=== PATIENT | female | born 1950 | race Caucasian/White ===

== ENCOUNTER → 2020-03-22 09:44 | Outpatient (BNVA) | payer MEDICARE, SELFPAY | PROVIDERS: Family Provider Family Medicine; PCP Family Medicine; Visit Provider Nurse Practitioner Family | DX: L63.9 Alopecia areata, unspecified (principal); Z12.31 Encounter for screening mammogram for malignant neoplasm of breast; I10 Essential (primary) hypertension; E03.9 Hypothyroidism, unspecified; E78.5 Hyperlipidemia, unspecified | CPT/HCPCS: 36415; 80061; 84439; 84443 ==

== ENCOUNTER → 2020-05-08 12:57 | Outpatient (BNVA) | payer MEDICARE, SELFPAY | PROVIDERS: Family Provider Family Medicine; PCP Family Medicine; Visit Provider Nurse Practitioner Family | DX: E03.9 Hypothyroidism, unspecified (principal) | CPT/HCPCS: 84439; 84443 ==

== ENCOUNTER 2020-08-19 10:37 | Outpatient (CLI) | payer MEDICARE, SELFPAY ==
--- NOTE | 2020-08-19 11:00 | MM_ITS ---
WS: [id number] BILATERAL DIGITAL SCREENING MAMMOGRAPHY WITH CAD CLINICAL INFORMATION: screening mammogram HISTORY: Screening mammogram. No current complaints. COMPARISON: TECHNIQUE: Bilateral CC and MLO views. FINDINGS: Scattered fibroglandular densities bilaterally. No suspicious focal mass, asymmetry, calcifications, or architectural distortion. No evidence of malignancy. Punctate and lucent center calcifications. Va scular calcifications. MM/[place] [id number] IMPRESSION: BI-RADS: 2-Benign FOLLOW UP: 1 Year Follow-up Recommend return to annual screening mammography.
== END 2020-08-19 10:38 | disposition home or self-care (01) ==
PROVIDERS: PCP Family Medicine; Visit Provider Nurse Practitioner Family
DX: Z12.31 Encounter for screening mammogram for malignant neoplasm of breast (principal)
CPT/HCPCS: 77067

== ENCOUNTER → 2020-10-17 09:00 | Outpatient (BNVA) | payer MEDICARE, SELFPAY | PROVIDERS: PCP Family Medicine; Visit Provider Nurse Practitioner Family | DX: E55.9 Vitamin D deficiency, unspecified (principal); E78.5 Hyperlipidemia, unspecified; I10 Essential (primary) hypertension | CPT/HCPCS: 80053; 80061; 82306 ==

== ENCOUNTER → 2021-05-05 13:17 | Outpatient (BNVA) | payer MEDICARE, SELFPAY | PROVIDERS: PCP Family Medicine; Visit Provider Nurse Practitioner Family | DX: E03.9 Hypothyroidism, unspecified (principal); E55.9 Vitamin D deficiency, unspecified | CPT/HCPCS: 82306; 84443 ==

== ENCOUNTER → 2021-06-23 13:04 | Outpatient (BNVA) | payer MEDICARE, SELFPAY | PROVIDERS: PCP Family Medicine; Visit Provider Nurse Practitioner Family | DX: E03.9 Hypothyroidism, unspecified (principal) | CPT/HCPCS: 84443 ==

== ENCOUNTER → 2021-08-06 10:40 | Outpatient (BNVA) | payer MEDICARE, SELFPAY | PROVIDERS: PCP Family Medicine; Visit Provider Nurse Practitioner Family | DX: E03.9 Hypothyroidism, unspecified (principal) | CPT/HCPCS: 84443 ==

== ENCOUNTER 2021-08-22 10:55 | Outpatient (CLI) | payer MEDICARE, SELFPAY ==
--- NOTE | 2021-08-22 11:00 | MM_ITS ---
WS: [id number] Exam: [place] [id number] Date/Time of Exam: 08/22/2021 11:04 AM Reason For Exam: Z12.31 - Encounter for screening mammogram for malignant ... VIEWS: MLO and CC views both breasts. Comparison made with prior exam of 07/24/2019 and 08/19/2020. Findings: There was no sign of mass, architectural distortion or suspicious calcification in either breast. Sc attered fibroglandular densities MM/[place] [id number] Impression: BI-RADS: 2-Benign FOLLOW-UP: 1 Year Follow-up This mammogram was also analyzed by the Computer Aided Detection System R2 Imag e Marine Welder.
== END 2021-08-22 10:56 | disposition home or self-care (01) ==
LOC: RADSHAW 11:01
PROVIDERS: PCP Nurse Practitioner Family; Visit Provider Nurse Practitioner Family
DX: Z12.31 Encounter for screening mammogram for malignant neoplasm of breast (principal)
CPT/HCPCS: 77067

== ENCOUNTER → 2021-09-23 13:57 | Outpatient (BNVA) | payer MEDICARE, SELFPAY | PROVIDERS: PCP Nurse Practitioner Family; Visit Provider Podiatrist Foot & Ankle Surgery | DX: M25.572 Pain in left ankle and joints of left foot (principal); M25.571 Pain in right ankle and joints of right foot | CPT/HCPCS: 73610 ==

== ENCOUNTER 2021-12-09 14:14 | Outpatient (CLI) | payer MEDICARE, SELFPAY | END 2021-12-09 14:15 | disposition home or self-care (01) | LOC: SPT 14:14 | PROVIDERS: PCP Nurse Practitioner Family; Visit Provider Podiatrist Foot & Ankle Surgery | DX: Z46.89 Encounter for fitting and adjustment of other specified devices (principal); M21.6X9 Other acquired deformities of unspecified foot; M20.41 Other hammer toe(s) (acquired), right foot; M20.42 Other hammer toe(s) (acquired), left foot; Q82.8 Other specified congenital malformations of skin; M21.621 Bunionette of right foot; M21.622 Bunionette of left foot | CPT/HCPCS: 97760; L3030 ==

== ENCOUNTER → 2022-04-08 12:39 | Outpatient (BNVA) | payer MEDICARE, SELFPAY | PROVIDERS: PCP Nurse Practitioner Family; Visit Provider Internal Medicine Cardiovascular Disease | DX: R07.89 Other chest pain (principal); I10 Essential (primary) hypertension; E03.9 Hypothyroidism, unspecified | CPT/HCPCS: 99203 ==

== ENCOUNTER 2022-07-21 11:26 | Outpatient (CLI) | payer MEDICARE, SELFPAY ==
--- NOTE | 2022-07-21 | ECG_ITS ---
[facility] Test Date: 2022-07-21 Pat Name: Kelsey Anderson Department: Room: Gender: Female Global Human Resources Director: Brissa Car : 1950 Requested By: Yesika Gutierrez Order Number: [id number] Monika MD: Yesika Gutierrez M.D. Interpretive Statements NAME OF STUDY: TREADMILL STRESS ECHOCARDIOGRAM INDICATION: Shortness of Breath PROCEDURE: At the baseline, the patient's blood pressure was 117/92 mmHg with a heart rate of 68 bpm and oxygen saturation 94%. The baseline electrocardiogram showed normal sinus rhythm, left axis deviation. Possible old anterior infarct. Nonspecific T wave changes. The patient exercised for 5 minutes 3 seconds on a standard Dean protocol. Patient attained a maximum heart rate of 156 beats per minute(104% of the maximum predicted heart rate) with a blood pressure at the peak exercise of 172/97 mm Hg and oxygen saturation of 88%. The EKG at the peak exercise revealed sinus tachycardia at half a millimeter upsloping ST depression in inferolateral leads not meeting diagnostic criteria for ischemia. Patient did not have any chest pain or any significant EKG changes with the exercise. During the recovery phase, there were no new changes. Blood pressure at the end of the recovery phase was 132/89 mm Hg with a heart rate of 76 beats per minute and oxygen saturation 92%. Echocardiographic pictures were taken at the baseline, immediately following the peak exercise and during the recovery phase. CONCLUSION: 1. Normal EKG response to treadmill exercise. 2. No exercise-induced chest pain or cardiac arrhythmia. 3. Good exercise tolerance, attained a maximum of 7 METs. 4. Please see separate report for the echocardiographic response to exercise. Electronically Signed On 07-29-2022 14:17:36 BUSHING AND BROACH OPERATOR by Yesika Gutierrez M.D. [id number]
[2022-07-21 12:02] VITALS: BMI 25.4
--- NOTE | 2022-07-21 12:03 | USCV_ITS ---
Carotid Duplex Kelsey Anderson Age: 72 Gender: F : 1950 Exam Date: 07/21/2022 12:15 Ordering Phys: Yesika Gutierrez MD ([email or web address]) Technologist: Dennis Fowler Exam Location: [facility] Indication: chest pain Rhythm: Sinus Patient History: Chest pain Cardiac Medications: NONE Medications in past 24 hours: NONE, No cardiac medications Contrast: Stress Results Protocol: Dean Total dose(mL): Exercise Duration (min:sec): 05:03 METS: 7.0 Resting HR: 58 Resting BP: 117 / 92 Peak HR: 156 Peak BP: 186 / 119 Max Predicted HR: 149 105 % Max Predicted HR Target HR: 127 Double Product: 05670 Stress Summary: The patient's target heart rate was achieved The hemodynamic response to exercise was normal The patient's target heart rate was achieved BP Response: Normal Reason for Termination: Test terminated after reaching maximum heart rate, Fatigue Cardiac Symptoms: Fatigue ECG Analysis Resting ECG: Stress ECG: Arrhythmia: MEASUREMENTS (Male/Female) Normal Values FINDINGS PROCEDURE: At the baseline, the patient's blood pressure was 117/92 mmHg with a heart rate of 58 bpm. The patient exercised for 5 minutes 3 seconds on a standard Dean protocol. Patient attained a maximum heart rate of 149 beats per minute(105% of the maximum predicted heart rate) with a blood pressure at the peak exercise of 186/119 mm Hg. During the recovery phase, there were no new changes. Echocardiographic pictures were taken at the baseline, immediately following the peak exercise and during the recovery phase. Baseline echocardiogram: Normal left ventricular size and systolic function with ejection fraction estimated at 70 %. There is somewhat asymmetric septal hypertrophy with basal septal thickness of 2.4 cm and posterior wall thickness of 2.1 cm. No regional wall motion abnormalities. Normal right ventricle size and systolic function. Normal right atrial and mildly increased left atrial size. No pericardial effusion. Structurally normal aortic and tricuspid valve. Mildly thickened mitral valve with no systolic anterior motion of anterior mitral leaflet. Mild mitral valve regurgitation. No intracardiac masses. Resting LVOT gradient of 44 (3.3 m/sec) and with Valsalva of 61 mmHg (3.9 m/s). Peak exercise echocardiogram: Normal augmentation of left ventricular systolic function with exercise. No new regional wall motion abnormalities. Peak left ventricular outflow tract gradient with exercise of 116 mmHg (Analytical Research Program Manager 5.4 m/s). Recovery echocardiogram: Left ventricular systolic function normalizes. No regional wall motion abnormalities. CONCLUSIONS 1. This is a treadmill stress echocardiogram. 2. There is somewhat asymmetric septal hypertrophy with basal septal thickness of 2.4 cm and posterior wall thickness of 2.1 cm. Resting LVOT gradient of 44 (3.3 m/sec) and with Valsalva of 61 mmHg (3.9 m/s). Peak left ventricular outflow tract gradient with exercise of 116 mmHg (Analytical Research Program Manager 5.4 m/s). However Doppler signals through LVOT seem to be interference with mitral valve signals. 3. Fair exercise tolerance, attained a maximum of 7 [place] [address]. 4. Normal blood pressure and heart rate response to exercise. 5. Normal echocardiographic response to exercise. 5. No EKG changes with exercise. Yesika Gutierrez MD (Electronically Signed) Final Date: 29 July 2022 16:30 S
[2022-07-21 12:49] VITALS: BP 132/89; PULSE 80
== END 2022-07-21 11:27 | disposition home or self-care (01) ==
PROVIDERS: PCP Nurse Practitioner Family; Visit Provider Internal Medicine Cardiovascular Disease
DX: R07.89 Other chest pain (principal)
CPT/HCPCS: 93017; 93350

== ENCOUNTER → 2022-08-14 10:27 | Outpatient (BNVA) | payer MEDICARE, SELFPAY | PROVIDERS: PCP Nurse Practitioner Family; Visit Provider Internal Medicine Cardiovascular Disease | DX: R07.89 Other chest pain (principal); I51.7 Cardiomegaly; Q24.8 Other specified congenital malformations of heart; I10 Essential (primary) hypertension; E03.9 Hypothyroidism, unspecified | CPT/HCPCS: 99214; Q3014 ==

== ENCOUNTER → 2022-11-04 13:40 | Outpatient (BNVA) | payer MEDICARE, SELFPAY | PROVIDERS: PCP Nurse Practitioner Family; Visit Provider Nurse Practitioner Family | DX: I10 Essential (primary) hypertension (principal); E03.9 Hypothyroidism, unspecified | CPT/HCPCS: 80053; 80061; 84443; 85025 ==

== ENCOUNTER → 2022-11-13 10:48 | Outpatient (BNVA) | payer MEDICARE, SELFPAY | PROVIDERS: PCP Nurse Practitioner Family; Visit Provider Nurse Practitioner Family | DX: I11.9 Hypertensive heart disease without heart failure (principal); R00.1 Bradycardia, unspecified | CPT/HCPCS: 93005; 99214 ==

== ENCOUNTER → 2022-12-22 08:53 | Outpatient (BNVA) | payer MEDICARE, SELFPAY | PROVIDERS: PCP Nurse Practitioner Family; Visit Provider Nurse Practitioner Family | DX: E03.9 Hypothyroidism, unspecified (principal) | CPT/HCPCS: 84443 ==

== ENCOUNTER 2023-02-26 10:40 | Outpatient (CLI) | payer MEDICARE, SELFPAY ==
--- NOTE | 2023-02-26 11:00 | CT_ITS ---
WS: [id number] CTA THORACIC TECHNIQUE: Contrast enhanced CTA of the thoracic aorta with coronal and sagittal reformatted images a nd maximum intensity projection (MIP) images. CLINICAL INFORMATION: To be done in January 2023 COMPARISON: None. DLP: 447.[address] scans at [facility] use at least one of these dose optimization techniques: automated e xposure control; mA and/or kV adjustment per patient size (includes targeted exams where dose is matc hed to clinical indication); or iterative reconstruction. FINDINGS: Aneurysmal ascending thoracic aorta measuring 3.9 CM. Normal caliber descending thoracic aorta. Minim al aortic calcification. Mild coronary calcification. Proximal main pulmonary arteries are patent. No mediastinal or hilar lymphadenopathy. Several enlarged RIGHT axillary lymph nodes. This can be further evaluated ultrasound. Largest lymph node measures 1.9 x 1.7 CM. No LEFT axillary lymphadenopathy. Small esophageal hiatal hernia. LEFT adrenal gland is normal. Normal thoracic spine. Both lungs are w ell aerated. Mild chronic emphysematous changes.Tiny noncalcified nodule LEFT lower lobe laterally me asuring 3 mm. Recommend 12 month follow-up. CT/CT angio chest [id number] IMPRESSION: 1. Aneurysmal ascending thoracic aorta measuring 3.9 cm in maximum dimension. Normal caliber descending thoracic aorta. 2. Both lungs are well aerated. No acute pulmonary infiltrates. 3. Mild enlargement of a few RIGHT axillary lymph nodes nonspecific. This can be further evaluated with ultrasound. 4. Small esophageal hiatal hernia. 5. Tiny noncalcified nodule LEFT lower lobe laterally measuring 3 mm. Recommen d 12 month follow-up.
[2023-02-26] MEDS: iohexol 350 mg/mL 500 mL Btl (per mL) IV (11:19)
== END 2023-02-26 10:41 | disposition home or self-care (01) ==
PROVIDERS: PCP Nurse Practitioner Family; Visit Provider Nurse Practitioner Family
DX: I71.20 Thoracic aortic aneurysm, without rupture, unspecified (principal); R59.0 Localized enlarged lymph nodes; K44.9 Diaphragmatic hernia without obstruction or gangrene; R91.1 Solitary pulmonary nodule
CPT/HCPCS: 71275; Q9967

== ENCOUNTER → 2023-03-01 10:42 | Outpatient (BNVA) | payer MEDICARE, SELFPAY | PROVIDERS: PCP Nurse Practitioner Family; Visit Provider Nurse Practitioner Family | DX: L81.4 Other melanin hyperpigmentation (principal); D22.5 Melanocytic nevi of trunk; L85.3 Xerosis cutis; L63.8 Other alopecia areata; L80 Vitiligo | CPT/HCPCS: 99214 ==

== ENCOUNTER 2023-04-15 13:28 | Outpatient (CLI) | payer MEDICARE, SELFPAY ==
--- NOTE | 2023-04-15 13:44 | MM_ITS ---
WS: [id number] BILATERAL 3D TOMOSYNTHESIS DIGITAL DIAGNOSTIC MAMMOGRAPHY WITH CAD CLINICAL INFORMATION: ENLARGED RT LYMPH NODE HISTORY: Enlarged RIGHT lymph node COMPARISON: 08/22/2021 TECHNIQUE: Bilateral CC, MLO, and ML views. FINDINGS: Scattered fibroglandular densities bilaterally. Punctate and lucent centered calcifications. Vascular calcifications. Enlarged lymph node in the RIGHT axilla partially visualized with a partial replaced fatty hilum. Lymph node measures approximately 4.1 x 1.5 cm. Ultrasound of this area is pending. ULTRASOUND BREAST RIGHT TECHNIQUE: Ultrasound right breast focused area of concern. CLINICAL INFORMATION: ENLARGED RT LYMPH NODE FINDINGS: Ultrasound RIGHT axilla in the area of palpable concern. There is an enlarged lymph node with partial replacement of the fatty chika measuring approximately 4.0 x 0.9 x 2.5 cm corresponding to the area o f palpable concern. This is indeterminate and recommend further evaluation with ultrasound-guided bio psy. IMPRESSION: MM/[place] [id number] BI-RADS: 4-Suspicious Finding-Biopsy Should Be Considered FOLLOW UP: US Guided Biopsy Recommended Recommend ultrasound-guided biopsy of the enlarged RIGHT axillary lymph node.
== END 2023-04-15 13:29 | disposition home or self-care (01) ==
PROVIDERS: PCP Nurse Practitioner Family; Visit Provider Nurse Practitioner Family
DX: Z12.39 Encounter for other screening for malignant neoplasm of breast (principal); R59.0 Localized enlarged lymph nodes
CPT/HCPCS: 76642; 77062; G0279

== ENCOUNTER → 2023-05-07 11:07 | Outpatient (BNVA) | payer MEDICARE, SELFPAY | PROVIDERS: PCP Nurse Practitioner Family; Visit Provider Internal Medicine Cardiovascular Disease | DX: R07.89 Other chest pain (principal); E03.9 Hypothyroidism, unspecified; I11.9 Hypertensive heart disease without heart failure | CPT/HCPCS: 99214 ==

== ENCOUNTER → 2023-05-11 10:02 | Outpatient (BNVA) | payer MEDICARE, SELFPAY | PROVIDERS: PCP Nurse Practitioner Family; Visit Provider Nurse Practitioner Family | DX: E55.9 Vitamin D deficiency, unspecified (principal); E78.5 Hyperlipidemia, unspecified; I10 Essential (primary) hypertension; E03.9 Hypothyroidism, unspecified | CPT/HCPCS: 80053; 80061; 82306 ==

== ENCOUNTER 2023-05-19 13:59 | Outpatient (CLI) | payer MEDICARE, SELFPAY ==
--- NOTE | 2023-05-19 14:45 | US_ITS ---
WS: [id number] ULTRASOUND-GUIDED RIGHT AXILLA BIOPSY (lymph node) HISTORY: R59.9 - Enlarged lymph nodes, unspecified COMPARISON: 04/15/2023 Procedure, risks and complications are explained to the patient. Medications are reviewed. Consent is obtained. The mass in the RIGHT axilla is localized with ultrasound. This mass is an abnormal lymph node. Skin is cleansed with ChloraPrep and anesthetized with 1% buffered lidocaine. Small dermatome is made. Und er sterile conditions mass is biopsied with a 14-gauge Achieve needle. Multiple core biopsies are per formed. Material placed in formalin and sent to pathology for review. No complications encountered. Breast tissue marker (Bard ultrasound enhanced ribbon): None Patient left the radiology suite with no complications. Patient is instructed to return to [facility] or [facility] with any concerns. IMPRESSION: 1. Uncomplicated core needle biopsy of abnormal RIGHT axillary lymph node US/[place] [id number] PATHOLOGY: Lymph node tissue with follicular and paracortical hyperplasia. Plechrist se review the entire pathology report. RECOMMENDATION: As noted in the pathology report surgical excision may be neces aman to evaluate the entire lymph node. No malignancy was identified on the jaswant pling provided.
[2023-05-20 12:56] LABS: Lymphoma Profile (BBPL) See Report
== END 2023-05-19 14:00 | disposition home or self-care (01) ==
LOC: RAD 14:04
PROVIDERS: PCP Nurse Practitioner Family; Visit Provider Nurse Practitioner Family
DX: R59.0 Localized enlarged lymph nodes (principal)
CPT/HCPCS: 19083; 88184; 88185; 88305; 88342; 99214

== ENCOUNTER → 2023-11-11 11:05 | Outpatient (BNVA) | payer MEDICARE, SELFPAY | PROVIDERS: PCP Nurse Practitioner Family; Visit Provider Nurse Practitioner Family | DX: I10 Essential (primary) hypertension (principal) | CPT/HCPCS: 99213 ==

== ENCOUNTER → 2024-01-10 14:02 | Outpatient (BNVA) | payer MEDICARE, SELFPAY | PROVIDERS: PCP Nurse Practitioner Family; Visit Provider Nurse Practitioner Family | DX: I10 Essential (primary) hypertension (principal) | CPT/HCPCS: 80053; 80061; 84439; 84443; 85025 ==

== ENCOUNTER → 2024-12-19 10:30 | Outpatient (BNVA) | payer MEDICARE, SELFPAY | PROVIDERS: PCP Nurse Practitioner Family; Visit Provider Nurse Practitioner Family | DX: I10 Essential (primary) hypertension (principal); E55.9 Vitamin D deficiency, unspecified | CPT/HCPCS: 80053; 80061; 82306 ==

== ENCOUNTER 2025-01-23 13:20 | Outpatient (CLI) | payer MEDICARE, SELFPAY ==
--- NOTE | 2025-01-23 15:30 | XR_ITS ---
WS: [id number] DEXA (DUAL ENERGY X-RAY ABSORPTIOMETRY) Bone mineral density was performed using a [employer] machine. HISTORY: Z78.0 - Asymptomatic menopausal state COMPARISON: 07/24/2019 Lumbar spine BMD (L1-L4): 0.866 g/cm2 T score: -2.6 Z score: -0.9 Total hip BMD: Left: 0.733 g/cm2. T score: -2.2 Z score: -0.5 Right: 0.836 g/cm2. T score: -1.4 Z score: 0.3 10 year probability of a major osteoporotic fracture is 24.4%. Compared to the prior study from 07/24/2019. Lumbar spine bone mineral density has decreased by 6.3%. Bilateral hips bone mineral density has decreased by 1.3%. XR/XR DEXA axial skeleton* 74484 IMPRESSION: OSTEOPOROSIS based upon the WHO classification for females. Significant decrease in bone mineral density in the lumbar spine since the prio r study. No significant change in bone mineral density hips.
== END 2025-01-23 13:21 | disposition home or self-care (01) ==
LOC: RAD 13:23
PROVIDERS: PCP Nurse Practitioner Family; Visit Provider Nurse Practitioner Family
DX: M81.0 Age-related osteoporosis without current pathological fracture (principal); Z78.0 Asymptomatic menopausal state
CPT/HCPCS: 77080

== ENCOUNTER → 2025-03-26 13:30 | Outpatient (BNVA) | payer MEDICARE, SELFPAY | PROVIDERS: PCP Nurse Practitioner Family; Visit Provider Nurse Practitioner Family | DX: R11.2 Nausea with vomiting, unspecified (principal); R19.7 Diarrhea, unspecified | CPT/HCPCS: 80053; 85025 ==

== ENCOUNTER 2025-03-27 21:09 | Emergency (ER) | payer MEDICARE, SELFPAY ==
--- OUTSIDE RECORDS SUMMARY | 2025-03-27 21:18 | XMS_ITS | Clinical Summary ---
Author Organization [facility] Address [address] [place] [address] Phone Care Team Providers Care Steward/Stewardess Night Name Role Phone Unavailable Primary Care Provider Unavailabl e Allergies No known active allergies Medications metoprolol tartrate (LOPRESSOR) 25 mg tablet Take 25 mg by mouth daily. Active levothyroxine 125 mcg tablet Take 125 mcg by mouth daily in the morning. Active CALCIUM CARBONATE ORAL Take 600 mg by mouth daily. Active cholecalciferol, vitamin D3, 5,000 unit Take 400 Units by mouth daily. Active Biotin 2,500 mcg Capsule Take by mouth. 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 BATHHOUSE KEEPER Height 162.6 cm (5' 4 ) 09/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
--- OUTSIDE RECORDS SUMMARY | 2025-03-27 21:19 | XMS_ITS | Patient Health Record ---
Author Organization [facility] Address [address] [place] [address] Care Team Providers Care Engineer Exhauster Name Role Phone Lindy Martínez Primary Care Provider Reason For Referral No Information Plan Of Treatment No Information
[2025-03-27 21:22] VITALS: BP 96/67; PULSE 85; RESP 16; TEMP 36.8; O2SAT 95; BMI 24.9
[2025-03-27 22:26] LABS: Hematocrit 48.9 % (36-47); Hemoglobin 16.60 g/dL (11.27-16.99); Mean Corpuscular HGB Conc 33.9 g/dL (30-55); Mean Corpuscular Hemoglobin 29.9 pg (27-33); Mean Corpuscular Volume 87.9 fl (85-98); Nucleated Red Blood Cells % 0 %; Platelet Count 222 10^3/cmm (157-399); Red Blood Count 5.56 10^6/uL (3.85-5.65); White Blood Count 11.19 10^3/uL (3.29-11.43)
[2025-03-27 22:47] LABS: Alanine Aminotransferase 323 U/L (0-33); Albumin Level 3.5 g/dL (3.5-5.2); Anion Gap 15.5 (5-19); Aspartate Amino Transferase 209 U/L (0-32); Blood Urea Nitrogen 18 mg/dL (8-23); Calcium 10.7 mg/dL (8.5-10.5); Carbon Dioxide 26 mmol/L (22-29); Chloride 93 mmol/L (98-107); Creatinine Clr Calc Pharmacy 51.1899; Globulin 3.7 g/dL (1.3-4.6); Glucose 120 mg/dL (65-115); Lactic Sepsis W/Reflex 1.4 mmol/L (0.5-2.2); Osmolality Calculated 275 mOsm/kg (285-295); Potassium 3.5 mmol/L (3.5-5.1); Sodium 131 mmol/L (136-145); Total Protein 7.2 g/dL (6.6-8.7)
[2025-03-27 22:49] LABS: Ammonia 27 umol/L (11-51)
[2025-03-27 23:03] LABS: Hepatitis A Antibody IgM Non-Reactive (Nonreactive); Hepatitis B Surface Antigen Non-Reactive (Nonreactive)
[2025-03-27 23:06] LABS: Alcohol Level < 10 mg/dL (0-10); Alkaline Phosphatase 2136 U/L (35-105)
[2025-03-27 23:31] LABS: Acetaminophen < 5.0 ug/mL (10-30)
--- NOTE | 2025-03-27 23:42 | ED_ITS ---
HPI - Recheck/Abnormal Lab/Rx 2 General: Chief Complaint: Recheck/Abnormal Lab/Rx Stated Complaint: Dr Marvin\Blood Work Time Seen by Provider: 03/27/25 23:38 History of Present Illness: Patient is a 75-year-old female with history of HTN, presents to the ED with weakness. This has been going on since last , 5 days ago. Patient had nausea, vomiting, , Wednesday, Wednesday. No melena. Her diarrhea is green in nature, now resolved. Nausea and vomiting were bilious in nature, now resolved. Current symptoms is weakness without fever, or chills. She does have a history of recent tick bite to her left arm. There is no rash there. No sick contact. No extra supplements other than [employer] here and nails by mouth. She has not had Prolia shot however it is on her profile. She does take her statin. She went to her primary care physician on 03/26 and labs obtained showed elevated LFTs, bilirubin, at 107, and 294, 4.5, respectively, and alkaline phosphatase at 1383. Related Data Home Medications ?Medication ?Instructions ?Recorded ?Confirmed calcium 600 mg (as 1 tab PO DAILY 03/22/2003/03 carbonate)-vitamin D3 10 mcg (400 unit) tablet (Calcium with Vitamin D) multivitamin with minerals 1 tab PO DAILY 02/05/22 (Hair,Skin and Nails tablet) acetaminophen 325 mg tablet 325 mg PO QID PRN 08/14/22 03/27/25 (Tylenol) clobetasol 0.05 % scalp solution 1 applic topical KELLEY Y PRN 08/14/22 03/27/25 cholecalciferol (vitamin D3) 125 125 mcg PO DAILY 10/3103/27/25 mcg (5,000 unit) capsule Previous Rx's ?Medication ?Instructions ?Recorded celecoxib 200 mg capsule (Celebrex) 200 mg PO BID #60 caps 02/07/24 metoprolol succinate 50 mg 50 mg PO DAILY #90 tabs tablet,extended release 24 hr levothyroxine 112 mcg tablet See Rx Instructions .Rout e 12/26/24 (Synthroid) .COMPLEX #90 tabs denosumab 60 mg/mL subcutaneous 60 mg SUBCUT ONCE #1 m L 02/15/25 syringe (Prolia) atorvastatin 40 mg tablet (Lipitor) 40 mg PO DAILY #90 tabs 02/28/25 Allergies Allergy/AdvReac Type Severity Reaction Status Date / Time No Known Allergies Allergy Verified 03/27/25 21:25 Review of Systems 2 General: Reports: 10 or more systems reviewed and unremarkable except in HPI and below Const: Reports: malaise; Denies: fever(s) or chills Eyes: Denies: change in vision or blurry vision ENMT: Denies: throat pain or mouth pain Card: Denies: chest pain or palpitations Resp: Denies: dyspnea or non-productive cough GI: Denies: abdominal pain, nausea or vomiting : Denies: flank pain or difficulty voiding Musc: Denies: neck pain, back pain, extremity pain or extremity swelling Skin/Breast: Denies: rash or pruritus Neuro: Reports: headache(s); Denies: numbness in extremities, sensory changes or lack of coordination PFSH ED 2 PFSH: Medical History (Updated 03/28/25 @ 02:00 by ROSA Goodwin) LVH (left ventricular hypertrophy) Hepatitis B vaccination declined Hypertension Acquired hypothyroidism Family History Sister History of palpitations Social History Smoking and tobacco/nicotine status: never used tobacco/nicotine Alcohol intake: never Substance/Drug Use: never Physical Exam 2 Const: COMMON NORMALS: no acute distress, average body habitus and patient oriented x3 EXAM LIMITATIONS: no altered mental status GENERAL APPEARANCE: cooperative, comfortable, well kempt and well developed; not in distress, not anxious and not disheveled ORIENTATION/CONSCIOUSNESS: Y es awake, Yes oriented to person, Yes oriented to place and Yes oriented to time HENMT: COMMON NORMALS: normocephalic, atraumatic, hearing grossly normal bilaterally and TM's normal bilaterally HEAD & SCALP: normocephalic and atraumatic TYMPANIC MEMBRANE: TM's normal bilaterally Chest: COMMONS NORMALS: normal inspection of the chest and normal palpation of entire chest wall Resp: COMMON NORMALS: normal respiratory effort, No retractions and clear to auscultation bilaterally AUSCULTATION: clear to auscultation bilaterally GI: COMMON NORMALS: Normal to inspection, nondistended, normoactive bowel sounds present, Soft to palpation, non-tender, No hepatosplenomegaly present (liver 10 cm), no masses and no bruits INSPECTION: Yes normal to inspection, No abdominal wall ecchymosis, No Abdominal wall edema, No Anasarca and No abdominal distension PALPATION: Yes Soft to palpation, No Tenderness to palpation present (GI), No Guarding due to palpation present (GI) and Yes No hepatosplenomegaly present (liver 10 cm) : COMMON NORMALS: Yes no CVA tenderness BLADDER/KIDNEY EXAM: Yes no CVA tenderness Back/Pelvis: COMMON NORMALS: no CVA tenderness Extremity: COMMON NORMALS: normal to inspection, full ROM and capillary refill normal Neuro: COMMON NORMALS: patient oriented x3, CN's II-XII intact bilaterally, moves all extremities, no focal motor deficits, no sensory deficits noted, deep tendon reflexes 2+ bilaterally and gait normal SENSORIUM/ORIENTATION: Yes oriented to person, Yes oriented to place and Yes oriented to time Psych: APPEARANCE: Yes well kempt Skin: COMMON NORMALS: no rashes or lesions noted, no wounds and turgor normal NARRATIVE SKIN EXAM: no rashes appreciated GENERAL SKIN EXAM: no rashes or lesions noted and turgor normal Course 2 Consultations: Consultation #1: Discussed with Dr. Scott at [facility], that has accepted the patient as admission. Discussed with [facility] that we will have a bed early this morning. 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 She has transaminitis, severely elevated alkaline phosphatase, and elevated bilirubin. She does not have thrombocytopenia, or leukopenia, although she does have history of tick bite. CT of the abdomen and pelvis is negative for obstructive pathology within the hepatic system. She does have gallstones without evidence of acute inflammatory changes. As well, urine analysis does reveal nitrite positive urine and pyuria. Acute hepatitis panel is negative. LDH is mildly elevated. INR is normal at 0.9. I will call GI for further advisement. [facility] hospitalist has accepted the patient. Further workup pending as per [facility]. Patient has been treated with Rocephin for pyuria, and doxycycline to cover differential tickborne, although the correct tickborne panel is not available at this facility. There was no rash on her left arm as she reported this tick bite. There was no thrombocytopenia or leukopenia, however she had severely elevated alkaline phosphatase when compared to previous, elevated bilirubin, and mildly increased transaminitis. Her initial bilirubin was 3.2 at the clinic, now 5.7, 1130 alkaline phosphatase, now over 2000. LDH was not obtained, however this is now elevated to 57. Hemoglobin is slightly increased at 16.6 indicating hemoconcentration. She was given 1 L of IV fluids. Her sodium is mildly low at 131, which I suspect is mild hypovolemia. I do suspect potassium will decrease to 3.5 since she received a liter of fluids, however I will defer this to the hospitalist for further decision-making. There is no obstructive pathology on CT. There is no MRCP or ultrasound available at this moment. Will transfer her for further workup however I suspect less likely cholangiohepatitis, obstructive hepatic pathology. Autoimmune, tick bite is still differentials. Acetaminophen level is benign. Lab Data 03/27/25 22:15 03/27/25 22:15 Radiology Impressions Abdomen/Pelvis CT 03/27/25 23:43 IMPRESSION: 1. Gallstones without definite significant acute inflammatory changes. 2. Aortic atherosclerosis. 3. Colonic diverticulosis probably most conspicuous in region of sigmoid without definite significant acute inflammatory changes. Laboratory Results WBC 11.19 10^3/uL (3.29-11.43) 03/27/25 22:15 RBC 5.56 10^6/uL (3.85-5.65) 03/27/25 22:15 Hgb 16.60 g/dL (11.27-16.99) 03/27/25 22:15 Hct 48.9 % (36-47) H 03/27/25 22:15 MCV 87.9 fl (85-98) 03/27/25 22:15 MCH 29.9 pg (27-33) 03/27/25 22:15 MCHC 33.9 g/dL (30-55) 03/27/25 22:15 RDW 12.6 % (12.1-15.1) 03/27/25 22:15 Plt Count 222 10^3/cmm (157-399) 03/27/25 22:15 MPV 9.5 fL (7.4-10.4) 03/27/25 22:15 Neut % (Auto) 62.5 % 03/27/25 22:15 Lymph % (Auto) 10.8 % 03/27/25 22:15 [place] % (Auto) 8.5 % 03/27/25 22:15 Eos % (Auto) 17.5 % 03/27/25 22:15 Baso % (Auto) 0.3 % 03/27/25 22:15 Neut # (Auto) 7.00 10^3/uL (1.8-7.7) 03/27/25 22:15 Lymph # (Auto) 1.2 10^3/uL (0.8-4.8) 03/27/25 22:15 [place] # (Auto) 1.0 10^3/uL (0.2-0.9) H 03/27/25 22:15 Eos # (Auto) 2.0 10^3/uL (0.0-0.8) H 03/27/25 22:15 Baso # (Auto) 0.0 10^3/uL (0.0-0.1) 03/27/25 22:15 Nucleated RBC % (auto) 0 % 03/27/25 22:15 Nucleated RBCs # 0.0 /100WBC 03/27/25 22:15 PT 12.70 SECONDS (12.1-14.9) 03/27/25 22:15 INR 0.89 (0.8-1.2) 03/27/25 22:15 Sodium 131 mmol/L (136-145) L 03/27/25 22:15 Potassium 3.5 mmol/L (3.5-5.1) 03/27/25 22:15 Chloride 93 mmol/L (98-107) L 03/27/25 22:15 Carbon Dioxide 26 mmol/L (22-29) 03/27/25 22:15 Anion Gap 15.5 (5-19) 03/27/25 22:15 BUN 18 mg/dL (8-23) 03/27/25 22:15 Creatinine 0.9 mg/dL (0.5-0.9) 03/27/25 22:15 GFR Calculation Not Reportable 03/27/25 22:15 Glucose 120 mg/dL (65-115) H 03/27/25 22:15 Calculated Osmolality 275 mOsm/kg (285-295) L 03/27/25 22:15 Lactic Acid 1.4 mmol/L (0.5-2.2) 03/27/25 22:15 Calcium 10.7 mg/dL (8.5-10.5) H 03/27/25 22:15 Total Bilirubin 5.7 mg/dL (0.15-1.2) H 03/27/25 22:15 AST 209 U/L (0-32) H 03/27/25 22:15 ALT 323 U/L (0-33) H 03/27/25 22:15 Alkaline Phosphatase 2136 U/L (35-105) H* 03/27/25 22:15 Ammonia 27 umol/L (11-51) 03/27/25 22:15 Lactate Dehydrogenase 243 U/L (135-214) H 03/27/25 22:15 Total Protein 7.2 g/dL (6.6-8.7) 03/27/25 22:15 Albumin 3.5 g/dL (3.5-5.2) 03/27/25 22:15 Globulin 3.7 g/dL (1.3-4.6) 03/27/25 22:15 Lipase 75 U/L (13-60) H 03/27/25 23:15 Urine Color Dark yellow (Yellow) A 03/28/25 00:24 Urine Appearance Clear (CLEAR) 03/28/25 00:24 Urine pH 5.5 (5-7) 03/28/25 00:24 Ur Specific [place] 1.036 (1.005-1.030) H 03/28/25 00:24 Urine Protein 1+ (Negative) A 03/28/25 00:24 Urine Glucose (UA) Negative (Normal) 03/28/25 00:24 Urine Ketones 1+ (Negative) H 03/28/25 00:24 Urine Blood 3+ (Negative) A 03/28/25 00:24 Urine Nitrate Positive (Negative) A 03/28/25 00:24 Urine Bilirubin 2+ (Negative) H 03/28/25 00:24 Urine Urobilinogen 1.0 mg/dL (Negative) 03/28/25 00:24 Ur Leukocyte Esterase 1+ (Negative) A 03/28/25 00:24 Urine RBC 6-10 /hpf (0-2) 03/28/25 00:24 Urine WBC 0-5 /hpf (0-5) 03/28/25 00:24 Ur Squamous Epith Cells 6-10 /hpf (0-5) 03/28/25 00:24 Amorphous Sediment Not Reportable 03/28/25 00:24 Urine Bacteria 4+ /hpf (NONE) H 03/28/25 00:24 Hyaline Casts 0.81 /lpf 03/28/25 00:24 Acetaminophen < 5.0 ug/mL (10-30) L 03/27/25 22:15 Ethyl Alcohol < 10 mg/dL (0-10) 03/27/25 22:15 Hepatitis A IgM Ab Non-reactive (Nonreactive) 03/27/25 22:15 Hep Bs Antigen Non-reactive (Nonreactive) 03/27/25 22:15 Hep B Core IgM Ab Non-reactive (Nonreactive) 03/27/25 22:15 Hepatitis C Antibody Non-reactive (Nonreactive) 03/27/25 22:15 Monoscreen Negative (Negative) 03/27/25 22:15 All radiology interpretation(s) finalized by discharge Discharge Plan Discharge Patient Disposition: Xfer Short-Term Hosp Clinical Impression: Elevated transaminase level, Elevated bilirubin, Elevated LDH, Pyuria Condition: Stable Referrals: Amina Alcaraz NP [Primary Care Provider, [facility]] Discharge Diet: Advance as tolerated and Clear Liquid Discharge Activity: Resume usual activity Print Language: Kyrgyz Coding Level of Care Code ED Training Program Manager for Willis Nieves
--- NOTE | 2025-03-27 23:43 | CTR_ITS ---
PROCEDURE INFORMATION: Exam: CT Abdomen And Pelvis With Contrast Exam date and time: 03/27/2025 11:58 PM Age: 75 years old Clinical indication: Abdominal pain TECHNIQUE: Imaging protocol: Computed tomography of the abdomen and pelvis with contrast. Radiation optimization: All CT scans at this facility use at least one of these dose optimization techniques: automated exposure control; mA and/or kV adjustment per patient size (includes targeted exams where dose is matched to clinical indication); or iterative reconstruction. Contrast material: OMNI 350; Contrast volume: 100 ml; Contrast route: INTRAVENOUS (IV); COMPARISON: CT angio chest [id number] 02/26/2023 11:13 AM RADIATION DOSE METRICS: Total DLP (mGy-cm): 498.33 FINDINGS: Lungs: Few scattered strands of the lung bases. Diaphragm: Probable small hiatal hernia. Liver: Normal. No mass. Gallbladder and biliary ducts: Gallstones without definite significant acute inflammatory changes. Pancreas: Normal. No ductal dilation. Spleen: Normal. No splenomegaly. Adrenal glands: Normal. No mass. Kidneys and ureters: Normal. No hydronephrosis. Stomach and bowel: Colonic diverticulosis probably most conspicuous in region of sigmoid without definite significant acute inflammatory changes. Focal loop of fluid-filled small bowel in the left hemiabdomen without definite wall thickening or inflammatory changes, doubtful clinical significance though can not totally exclude focal enteritis. Appendix: No evidence of appendicitis. Intraperitoneal space: Unremarkable. No free air. No significant fluid collection. Vasculature: Aortic atherosclerosis. Lymph nodes: Unremarkable. No enlarged lymph nodes. Urinary bladder: Unremarkable as visualized. Reproductive: Unremarkable as visualized. Bones/joints: Unremarkable. No acute fracture. Soft tissues: Unremarkable. CT/CT abdomen pelvis w con* [id number] IMPRESSION: 1. Gallstones without definite significant acute inflammatory changes. 2. Aortic atherosclerosis. 3. Colonic diverticulosis probably most conspicuous in region of sigmoid without definite significant acute inflammatory changes.
[2025-03-28] VITALS (37 sets, daily range): BP systolic 87–142; BP diastolic 47–79; PULSE 73–97; O2SAT 90–97
[2025-03-28] MEDS: iohexol 350 mg/mL 500 mL Btl (per mL) IV (00:02)
[2025-03-28 00:36] LABS: Glucose Urine UA Negative (Normal); Nitrate Urine Positive (Negative)
[2025-03-28 00:41] LABS: Add Urine Microscopic? YES
[2025-03-28 00:48] LABS: Specific Gravity, Urine 1.036 (1.005-1.030)
[2025-03-28 01:27] LABS: Lipase 75 U/L (13-60)
[2025-03-28 01:31] LABS: INR 0.89 (0.8-1.2); Prothrombin Time 12.70 SECONDS (12.1-14.9)
[2025-03-28] MEDS: cefTRIAXone 1,000 mg SDV 1000 MG IVP (02:02)
--- NOTE | 2025-03-28 18:29 | PC.NURSE ---
report called to ALE Jim at [facility] [id number]
== END 2025-03-28 22:54 | disposition short-term general hospital (02) ==
PROVIDERS: Emergency Provider Physician Assistant; PCP Nurse Practitioner Family
DX: R74.01 Elevation of levels of liver transaminase levels (principal); E80.7 Disorder of bilirubin metabolism, unspecified; R74.02 Elevation of levels of lactic acid dehydrogenase [LDH]; R82.81 Pyuria; I10 Essential (primary) hypertension
CPT/HCPCS: 36415; 74177; 80053; 80074; 80307; 81001; 82140; 83605; 83615; 83690; 85025; 85610; 86308; 87077; 87086; 87186; 96361; 96374; 99285; J0696; J7030; J9999

== ENCOUNTER → 2025-04-06 12:00 | Outpatient (BNVA) | payer MEDICARE, SELFPAY | PROVIDERS: PCP Nurse Practitioner Family; Visit Provider Nurse Practitioner Family | DX: R74.8 Abnormal levels of other serum enzymes (principal) | CPT/HCPCS: 80053 ==

== ENCOUNTER → 2025-05-07 09:00 | Outpatient (BNVA) | payer MEDICARE, SELFPAY | PROVIDERS: PCP Nurse Practitioner Family; Visit Provider Nurse Practitioner Family | DX: R74.8 Abnormal levels of other serum enzymes (principal) | CPT/HCPCS: 80053; 83690; 85025 ==

== ENCOUNTER → 2025-06-13 11:04 | Outpatient (BNVA) | payer MEDICARE, SELFPAY | PROVIDERS: PCP Nurse Practitioner Family; Visit Provider Nurse Practitioner Family | DX: I10 Essential (primary) hypertension (principal); E78.5 Hyperlipidemia, unspecified; E03.9 Hypothyroidism, unspecified | CPT/HCPCS: 80053; 80061; 84443; 85025 ==